=== PATIENT | female | born 1965 | race African-American/Black ===

== ENCOUNTER 2017-12-10 14:33 | Emergency (ER) | payer OTHER ==
[2017-12-10 14:56] VITALS: BP 154/83; PULSE 86; TEMP 99.1; BMI 25.5
--- NOTE | 2017-12-10 14:59 | PDOC ---
Rapid Medical Evaluation Chief Complaint: Pain Time Seen by Provider: 12/10/17 14:55 Medical Evaluation: Allergies Allergy/AdvReac Type Severity Reaction Status Date / Time No Known Allergies Allergy Verified 12/10/17 14:56 Vital Signs Temp Pulse Resp BP Pulse Ox 99.1 F 86 18 154/83 98 12/10/17 14:54 12/10/17 14:54 12/10/17 14:54 12/10/17 14:54 12/10/17 14:54 12/10/17 14:57 The patient presents with a chief complaint of: RLQ abdominal pain for one day. Pain is getting worse through out the day. Hx of divertiultis, hysterectomy I have performed a brief in-person evaluation of this patient; Pertinent physical exam findings: Soft non-tender abdomen. I have ordered the following: CBC, CMP, PT/INR, UA The patient will proceed to the ED for further evaluation.
[2017-12-10 16:08] LABS: BASO % 0.2 % (0-2.0); EOS % 1.9 % (0-4.5); HEMATOCRIT 39.7 % (32.4-45.2); HEMOGLOBIN 12.9 GM/dL (10.7-15.3); LYMPH % 14.4 % (8-40); MCH 27.5 pg (25.7-33.7); MCHC 32.6 g/dl (32.0-36.0); MEAN CELL VOLUME 84.3 fl (80-96); MEAN PLT VOLUME 8.8 fl (7.5-11.1); MONO % 3.9 % (3.8-10.2); NEUT % 79.6 % (42.8-82.8); PLATELET COUNT 210 K/MM3 (134-434); WHITE BLOOD COUNT 7.1 K/mm3 (4.0-10.0)
[2017-12-10 16:14] LABS: URINE APPEARANCE CLEAR; URINE BILIRUBIN NEGATIVE (NEGATIVE); URINE BLOOD NEGATIVE (NEGATIVE); URINE COLOR LTYELLOW; URINE GLUCOSE (UA) NEGATIVE (NEGATIVE); URINE KETONE TRACE (NEGATIVE); URINE LEUK ESTERASE NEGATIVE (NEGATIVE); URINE NITRITE NEGATIVE (NEGATIVE); URINE PROTEIN NEGATIVE (NEGATIVE); URINE UROBILINOGEN NEGATIVE mg/dL (0.2-1.0)
[2017-12-10 16:22] LABS: INR 1.1 (0.82-1.09); PROTHROMBIN TIME (PATIENT) 12.4 SEC (9.98-11.88)
[2017-12-10 16:33] LABS: ALBUMIN 4.7 g/dl (3.4-5.0); ANION GAP 11 (8-16); BLOOD UREA NITROGEN 12 mg/dL (7-18); CALCIUM 9.7 mg/dL (8.5-10.1); CHLORIDE 100 mmol/L (98-107); CO2 27 mmol/L (21-32); CREATININE 0.6 mg/dL (0.55-1.02); GLUCOSE,RANDOM 83 mg/dL (74-106); POTASSIUM 3.9 mmol/L (3.5-5.1); SGOT/AST 17 U/L (15-37); SGPT/ALT 28 U/L (12-78); SODIUM 138 mmol/L (136-145)
[2017-12-10 16:35] LABS: ALK PHOS 109 U/L (45-117); BILIRUBIN,TOTAL 1.1 mg/dL (0.2-1.0); TOT PROT 8.9 g/dl (6.4-8.2)
--- NOTE | 2017-12-10 19:02 | PDOC ---
History of Present Illness - History of Present Illness Initial Comments: 12/10/17 19:22 The patient is a 52 year old female, with a significant past medical history of diffuse diverticulitis, partial hysterectomy for fibroids, who presents to the emergency department with right suprapubic pain for 1 day. She states that her pain began when she woke up at 6:30 and has worsened throughout the day. She also admits to associated back pain and nausea without vomit She denies recent fevers, chills, headache or dizziness. She denies recent vomit , diarrhea or constipation. She denies recent dysuria, frequency, urgency or hematuria. She denies hematochezia. She denies recent chest pain or shortness of breath. Medications: denies Allergies: Denies Past surgical history: Partial hysterectomy for fibroids. Social history: Nonsmoker. Denies EtOH use and recreational drug use. <Laura Hahn - Last Filed: 12/10/17 19:59> <Noemi Doe - Last Filed: 12/10/17 21:42> - General Chief Complaint: Pain Stated Complaint: ABD /BACK PAIN Time Seen by Provider: 12/10/17 14:55 Past History <Laura Hahn - Last Filed: 12/10/17 19:59> - Past Medical History COPD: No GI Disorders: Yes (diverticulitis) - Suicide/Smoking/Psychosocial Hx Smoking Status: No Smoking History: Never smoked Number of Cigarettes Smoked Daily: 0 Information on smoking cessation initiated: No Hx Alcohol Use: No Drug/Substance Use Hx: No Substance Use Type: None <Noemi Doe - Last Filed: 12/10/17 21:42> - Past Medical History Allergies/Adverse Reactions: Allergies Allergy/AdvReac Type Severity Reaction Status Date / Time No Known Allergies Allergy Verified 12/10/17 14:56 Home Medications: Ambulatory Orders No Home Medications 0 dose .ROUTE UTDICT 05/29/13 Docusate Sodium [Colace -] 100 mg PO DAILY #7 capsule 12/10/17 Levofloxacin [Levaquin] 500 mg PO DAILY #10 tablet 12/10/17 Metronidazole [Flagyl -] 250 mg PO TID #21 tablet 12/10/17 Oxycodone HCl/Acetaminophen [Percocet 5-325 mg Tablet] 1 tab PO Q6H PRN #10 tablet MDD 4 12/10/17 Review of Systems - Review of Systems Comments:: 12/10/17 19:52 CONSTITUTIONAL: Absent: fever, no chills, no fatigue EYES: Absent: visual changes ENT: Absent: ear pain, no sore throat CARDIOVASCULAR: Absent: chest pain, no palpitations RESPIRATORY: Absent: cough, no SOB GI: Present: nausea, right suprapubic pain Absent: no vomiting, no constipation, no diarrhea GENITOURINARY: Absent: dysuria, no frequency, no hematuria MUSCULOSKELETAL: Present: back pain Absent: no arthralgia, no myalgia SKIN: Absent: rash NEURO: Absent: headache <Laura Hahn - Last Filed: 12/10/17 19:59> *Physical Exam - Vital Signs Last Vital Signs Temp Pulse Resp BP Pulse Ox 99.1 F 86 18 154/83 98 12/10/17 14:54 12/10/17 14:54 12/10/17 14:54 12/10/17 14:54 12/10/17 14:54 - Physical Exam Comments: 12/10/17 20:01 GENERAL: Well-appearing, well-nourished. No apparent distress. HEENT: Normocephalic, atraumatic. PERRL, EOM intact. CARDIOVASCULAR: Normal S1, S2. Regular rate and rhythm. PULMONARY: Clear to auscultation bilaterally. ABDOMEN: Soft, non-distended, right suprapubic tenderness to palpation. EXTREMITIES: Normal ROM in all four extremities. No gross deformities. SKIN: Warm, dry. No rash NEUROLOGICAL: No focal neurological deficits. <Laura Hahn - Last Filed: 12/10/17 19:59> - Vital Signs Last Vital Signs Temp Pulse Resp BP Pulse Ox 99.1 F 86 18 154/83 98 12/10/17 14:54 12/10/17 14:54 12/10/17 14:54 12/10/17 14:54 12/10/17 14:54 <Noemi Doe - Last Filed: 12/10/17 21:42> ED Treatment Course - LABORATORY CBC & Chemistry Diagram: 12/10/17 15:21 12/10/17 15:21 - ADDITIONAL ORDERS Additional order review: Laboratory Results 12/10/17 12/10/17 12/10/17 15:37 15:21 15:21 PT with INR 12.40 H INR 1.10 Sodium 138 Potassium 3.9 Chloride 100 Carbon Dioxide 27 Anion Gap 11 BUN 12 Creatinine 0.6 D Creat Clearance w eGFR > 60 Random Glucose 83 Calcium 9.7 Total Bilirubin 1.1 H AST 17 ALT 28 Alkaline Phosphatase 109 Total Protein 8.9 H Albumin 4.7 Urine Color Ltyellow Urine Appearance Clear Urine pH 7.0 Ur Specific [place] 1.016 Urine Protein Negative Urine Glucose (UA) Negative Urine Ketones Trace H Urine Blood Negative Urine Nitrite Negative Urine Bilirubin Negative Urine Urobilinogen Negative Ur Leukocyte Esterase Negative 12/10/17 15:21 RBC 4.70 MCV 84.3 MCHC 32.6 RDW 14.0 MPV 8.8 Neutrophils % 79.6 Lymphocytes % 14.4 Monocytes % 3.9 Eosinophils % 1.9 Basophils % 0.2 <Laura Hahn - Last Filed: 12/10/17 19:59> - LABORATORY CBC & Chemistry Diagram: 12/10/17 15:21 12/10/17 15:21 - ADDITIONAL ORDERS Additional order review: Laboratory Results 12/10/17 12/10/17 12/10/17 15:37 15:21 15:21 PT with INR 12.40 H INR 1.10 Sodium 138 Potassium 3.9 Chloride 100 Carbon Dioxide 27 Anion Gap 11 BUN 12 Creatinine 0.6 D Creat Clearance w eGFR > 60 Random Glucose 83 Calcium 9.7 Total Bilirubin 1.1 H AST 17 ALT 28 Alkaline Phosphatase 109 Total Protein 8.9 H Albumin 4.7 Urine Color Ltyellow Urine Appearance Clear Urine pH 7.0 Ur Specific [place] 1.016 Urine Protein Negative Urine Glucose (UA) Negative Urine Ketones Trace H Urine Blood Negative Urine Nitrite Negative Urine Bilirubin Negative Urine Urobilinogen Negative Ur Leukocyte Esterase Negative 12/10/17 15:21 RBC 4.70 MCV 84.3 MCHC 32.6 RDW 14.0 MPV 8.8 Neutrophils % 79.6 Lymphocytes % 14.4 Monocytes % 3.9 Eosinophils % 1.9 Basophils % 0.2 <Noemi Doe - Last Filed: 12/10/17 21:42> *DC/Admit/Observation/Transfer - Attestations Scribe Attestion: 12/10/17 20:01 Documentation prepared by Laura Hahn, acting as medical technologist hematology for Noemi Doe MD. <Laura Hahn - Last Filed: 12/10/17 19:59> <Noemi Doe - Last Filed: 12/10/17 21:42> Diagnosis at time of Disposition: Diverticulitis - Discharge Dispostion Disposition: HOME Condition at time of disposition: Stable - Prescriptions Prescriptions: Docusate Sodium [Colace -] 100 mg PO DAILY #7 capsule Levofloxacin [Levaquin] 500 mg PO DAILY #10 tablet Metronidazole [Flagyl -] 250 mg PO TID #21 tablet Oxycodone HCl/Acetaminophen [Percocet 5-325 mg Tablet] 1 tab PO Q6H PRN #10 tablet MDD 4 PRN Reason: Severe Pain - Referrals Referrals: Jose Owens DO [Staff Physician] - Chanda Lang MD [Staff Physician] - - Patient Instructions Printed Discharge Instructions: DI for Diverticulitis Additional Instructions: 1-please coal picker your medications at the pharmacy and take them as directed 2-Return for any worsening symptoms 3- Narcotics are constipating so take your colace if needed 4-do not drive if you take the percocet 5-only take the percocet for SEVERE pain 6- take the antibiotics levaquin and flagyl to treat the diverticulitis 6- See the gastroenterolgist for further evaluation
[2017-12-10] MEDS ORDERED: metroNIDAZOLE 500 MG TABLET PO ONE (21:23)
[2017-12-10] MEDS ORDERED: LEVOFLOXACIN 500 MG TABLET (FP) PO ONE (21:24)
[2017-12-10] MEDS ORDERED: metroNIDAZOLE 250 MG TABLET ONE (21:27)
[2017-12-10] MEDS ORDERED: LEVOFLOXACIN 500 MG TABLET (FP) ONE (21:28)
== END 2017-12-10 22:41 | disposition home or self-care (01) ==
LOC: JER 14:33
DX: K57.92 Diverticulitis of intestine, part unspecified, without perforation or abscess without bleeding (principal)
CPT/HCPCS: 36415; 74176-TC; 80053; 81003; 85025; 85610; 99282-25